=== PATIENT | female | born 1940 | race Caucasian/White ===

== ENCOUNTER 2024-03-15 14:35 | Emergency (ER) | payer MEDICARE ==
[~2024-03-15] VITALS: Ht 165.1 cm; Wt 70.0 kg
[2024-03-15 14:38] VITALS: O2SAT 98
[2024-03-15 16:10] VITALS: TEMP 36.83628
[2024-03-15 16:40] LABS: CHLORIDE 100 mEq/L (98-107); POTASSIUM 4.7 mEq/L (3.5-5.1); SODIUM 137 mEq/L (136-145)
[2024-03-15 16:41] LABS: BASOPHILS % 1.6 % (0.0-2.0); CARBON DIOXIDE 30 mEq/L (21-32); HEMATOCRIT. 35.8 % (36.0-48.0); HEMOGLOBIN. 11.4 g/dL (12.0-16.0); MEAN CORPUSCULAR HEMOGLOBIN 29.1 pg (28.0-32.0); MEAN CORPUSCULAR HGB CONC 31.8 g/dL (31.0-37.0); MEAN CORPUSCULAR VOLUME 91.4 fL (81.0-99.0); MEAN PLATELET VOLUME 7.6 fl (7.4-10.4); MONOCYTES % 10.9 % (2.0-8.0); NEUTROPHILS % 58.5 % (40.0-76.0); PLATELET 236 x1000/uL (130-400); RED BLOOD CELL COUNT 3.92 mill/uL (4.2-5.4); RED CELL DISTRIBUTION WIDTH 16.8 % (11.6-14.6); WHITE BLOOD COUNT 4.7 x1000/uL (4.5-11.0)
[2024-03-15 16:42] LABS: CALCIUM 8.6 mg/dL (8.7-10.4)
[2024-03-15 16:46] LABS: CREATININE 4.7 mg/dL (0.6-1.0); GLUCOSE 149 mg/dL (70-105)
[2024-03-15 16:47] LABS: UREA NITROGEN BLOOD 44 mg/dL (9-23)
[2024-03-15 16:48] LABS: ALANINE AMINOTRANSFERASE 11 IU/L (10-49); ALBUMIN 3.7 g/dL (3.2-4.8); ASPARTATE AMINOTRANSFERASE 18 IU/L (<34)
[2024-03-15 16:49] LABS: BILIRUBIN TOTAL 0.2 mg/dL (0.1-1.0); PROTEIN TOTAL 7.2 g/dL (6.0-8.3)
[2024-03-15 20:07] LABS: CLARITY URINE CLOUDY (CLEAR); COLOR URINE YELLOW (YELLOW); GLUCOSE URINE NEGATIVE (NEGATIVE); KETONES URINE NEGATIVE (NEGATIVE); LEUKOCYTE ESTERASE URINE NEGATIVE (NEGATIVE); NITRITE URINE NEGATIVE (NEGATIVE); OCCULT BLOOD URINE NEGATIVE (NEGATIVE); PH URINE 8.5 (4.5-8.0); PROTEIN URINE 1+ (NEGATIVE); SPECIFIC GRAVITY URINE 1.008 (1.005-1.030); UROBILINOGEN URINE 0.2 E.U./dL (0.2-1.0)
[2024-03-15 20:25] LABS: BACTERIA URINE 3+; RBC URINE 0-2 /hpf (0-2); SQUAMOUS EPITHELIAL CELL URINE 1+ /lpf (RARE/1+); WBC URINE 0-2 /hpf (0-2)
[2024-03-15 21:34] VITALS: BP 160/59; PULSE 71; RESP 16; O2SAT 98
== END 2024-03-15 21:45 | disposition home or self-care (01) ==
LOC: ER 15:20
DX: S01.01XA Laceration without foreign body of scalp, initial encounter (principal); I48.91 Unspecified atrial fibrillation; I11.0 Hypertensive heart disease with heart failure; I50.9 Heart failure, unspecified; N28.9 Disorder of kidney and ureter, unspecified; Z86.59 Personal history of other mental and behavioral disorders; Z86.39 Personal history of other endocrine, nutritional and metabolic disease; W18.30XA Fall on same level, unspecified, initial encounter; Y93.89 Activity, other specified; Y92.89 Other specified places as the place of occurrence of the external cause; Y99.8 Other external cause status
CPT/HCPCS: 36415; 80053; 81003; 85025; 99284